=== PATIENT | male | born 1975 | race African-American/Black ===

== ENCOUNTER 2020-10-14 07:18 | Emergency (ER) | payer SELFPAY ==
[~2020-10-14] VITALS: Ht 180.3 cm; Wt 79.6 kg
--- NOTE | 2020-10-14 07:59 | PHYS DOC ---
Past Medical History Past Medical History: No Pertinent History Past Surgical History: No Surgical History Smoking Status: Current Every Day Smoker Additional Information: 02/28 ppd Alcohol Use: Occasionally General Adult EDM: Chief Complaint: MUSCLE SPASM/CRAMP HPI: HPI: Patient is a 45 year old male who present to ER for evaluation of pain in his right thigh area off and on for 1 month. Patient denies any injury. Patient denies any pain or swelling. Patient denies any numbness or weakness. Patient denies any testicular pain, denies any groin pain. Patient said sometime he walks he stop have some pain patient denies any bowel bladder incontinence. Patient denies any low back injury. Patient said sometimes the pain is spreading to the left thigh area mostly on the right side. Review of Systems: Review of Systems: Constitutional: Denies fever or chills. [] Eyes: Denies change in visual acuity. [] HENT: Denies nasal congestion or sore throat. [] Respiratory: Denies cough or shortness of breath. [] Cardiovascular: Denies chest pain or edema. [] GI: Denies abdominal pain, nausea, vomiting, bloody stools or diarrhea. [] : Denies dysuria. [] Musculoskeletal: Denies back pain or joint pain. Positive for right side thigh pain Integument: Denies rash. [] Neurologic: Denies headache, focal weakness or sensory changes. [] Endocrine: Denies polyuria or polydipsia. [] Lymphatic: Denies swollen glands. [] Psychiatric: Denies depression or anxiety. [] Heart Score: C/O Chest Pain: N/A Risk Factors: Risk Factors: DM, Current or recent (<one month) smoker, HTN, HLP, family history of CAD, obesity. Risk Scores: Score 0 - 3: 2.5% MACE over next 6 weeks - Discharge Home Score 4 - 6: 20.3% MACE over next 6 weeks - Admit for Clinical Observation Score 7 - 10: 72.7% MACE over next 6 weeks - Early Invasive Strategies Allergies: Allergies: Allergies Coded Allergies Type Severity Reaction Last Updated Verified No Known Drug Allergies 10/14/20 No Physical Exam: PE: Constitutional: Well developed, well nourished, no acute distress, non-toxic appearance. [] HENT: Normocephalic, atraumatic, bilateral external ears normal, oropharynx moist, no oral exudates, nose normal. [] Eyes: PERRLA, EOMI, conjunctiva normal, no discharge. [] Neck: Normal range of motion, no tenderness, supple, no stridor. [] Cardiovascular:Heart rate regular rhythm, no murmur [] Lungs & Thorax: Bilateral breath sounds clear to auscultation [] Abdomen: Bowel sounds normal, soft, no tenderness, no masses, no pulsatile masses. [] Skin: Warm, dry, no erythema, no rash. [] Back: No tenderness, no CVA tenderness. [] Extremities: No tenderness, no cyanosis, no clubbing, ROM intact, no edema. There is no swelling or redness in the right thigh area, no tenderness to palpation. There is no inguinal hernia noted. Neurologic: Alert and oriented X 3, normal motor function, normal sensory function, no focal deficits noted. [] Psychologic: Affect normal, judgement normal, mood normal. [] Current Patient Data: Vital Signs: Vital Signs Date Time Temp Pulse Resp B/P (MAP) Pulse Ox O2 Delivery O2 Flow Rate FiO2 10/14/20 07:33 98.4 80 18 119/68 96 Room Air 98.4 EKG: EKG: [] Radiology/Procedures: Radiology/Procedures: [][facility] [address] [place] [address] IMAGING REPORT Signed PATIENT: KELSEY GUZMAN ACCOUNT: [id number] : 1975 LOCATION: ER AGE: 45 SEX: M EXAM STATUS: REG ER ORD. PHYSICIAN: KIKO RUVALCABA DO REASON: lower back pain radiating to right thigh area off and on for 1 month PROCEDURE: LUMBAR SPINE 2-3V XR LUMBAR SPINE 2-3V History: Lower back pain radiating to right side on and off for one month. Comparison: None. Technique: 5 views of the lumbar spine. Findings: There are 5 non-rib bearing lumbar vertebral segments. There is no evidence of fracture. Alignment is normal. No destructive osseous lesions are seen. No significant facet disease. Moderate disc space narrowing L5-S1. Sacroiliac joints are unremarkable. Soft tissues are unremarkable. IMPRESSION: 1. Moderate disc space narrowing L5-S1. Electronically signed by: Juan Ortiz MD (10/14/2020 8:28 AM) [id number] DICTATED and SIGNED BY: JUAN ORTIZ MD DATE: 10/14/20 [id number] 0 Course & Med Decision Making: Course & Med Decision Making Pertinent Labs and Imaging studies reviewed. (See chart for details) Patient is a 45-year-old male who present to ER due to right-sided thigh pain, x-ray showed moderate narrow disc space at L5-S1 area causing sciatic symptoms. Patient had no bowel or bladder incontinence. Patient will be discharged home, he will need to follow-up with family physician for outpatient evaluation with MRI of the lumbar spine. Dragon Disclaimer: [employer] Disclaimer: This electronic medical record was generated, in whole or in part, using a voice recognition dictation system. Departure Departure Impression: Primary Impression: Sciatica of right side Disposition: HOME / SELF CARE / HOMELESS Condition: STABLE Referrals: NO PCP (PCP) Please follow up with [facility] this week. [address], [address] [place] [address] Phone number: [phone] Patient Instructions: Sciatica with Rehab[facility] Additional Instructions: Please follow-up with your doctor for reevaluation with MRI of your low back area next week. Thank you for visiting our Emergency Department. We appreciate you trusting us with your care. If any additional problems come up don't hesitate to return to visit us. Please follow up with your primary care provider so they can plan additional care if needed and know about the problem that you had. If symptoms worsen come back to the Emergency Department. Any concerning symptoms that start such as chest pain, shortness of air, weakness or numbness on one side of the body, running high fevers or any other concerning symptoms return to the ER. Scripts Ibuprofen (IBUPROFEN) 600 Mg Tablet 600 MG PO PRN Q8HRS PRN for PAIN, #30 TAB Prov: KIKO RUVALCABA DO 10/14/20 Cyclobenzaprine Hcl (CYCLOBENZAPRINE HCL) 10 Mg Tablet 1 TAB PO TID PRN for MUSCLE SPASMS, #20 TAB Prov: KIKO RUVALCABA DO 10/14/20 Prednisone (PREDNISONE) 20 Mg Tablet 1 TAB PO DAILY for 12 Days, #12 TAB Prov: KIKO RUVALCABA DO 10/14/20 KIKO RUVALCABA DO Oct 14, 2020 07:59
--- NOTE | 2020-10-14 08:31 | RAD ---
XR LUMBAR SPINE 2-3V History: Lower back pain radiating to right side on and off for one month. Comparison: None. Technique: 5 views of the lumbar spine. Findings: There are 5 non-rib bearing lumbar vertebral segments. There is no evidence of fracture. Alignment is normal. No destructive osseous lesions are seen. No significant facet disease. Moderate disc space narrowing L5-S1. Sacroiliac joints are unremarkable. Soft tissues are unremarkable. IMPRESSION: 1. Moderate disc space narrowing L5-S1. Electronically signed by: Juan Ortiz MD (10/14/2020 8:28 AM) [id number]
[2020-10-14] MEDS ORDERED: CYCL10TA2 PO (09:13)
[2020-10-14] MEDS ORDERED: IBUP-1007 PO (09:13)
[2020-10-14] MEDS ORDERED: PRED20TA PO (09:13)
[2020-10-14 09:22] VITALS: BP 125/71
== END 2020-10-14 09:22 | disposition home or self-care (01) ==
LOC: ER 07:18
DX: M54.31 Sciatica, right side (principal); F17.200 Nicotine dependence, unspecified, uncomplicated
CPT/HCPCS: 72100; 99283

== ENCOUNTER 2020-11-11 06:51 | Emergency (ER) | payer SELFPAY ==
[~2020-11-11] VITALS: Ht 180.3 cm; Wt 76.7 kg
[~2020-11-11 06:51] MED LIST: CYCL10TA2 PO; IBUP-1007 PO; PRED20TA PO
[2020-11-11 07:06] VITALS: BP 142/89
[2020-11-11] MEDS ORDERED: PRED20TA PO (07:30)
[2020-11-11] MEDS ORDERED: TRAM50TA PO (07:30)
--- NOTE | 2020-11-11 07:31 | PHYS DOC ---
Past Medical History Past Medical History: No Pertinent History Past Surgical History: No Surgical History Smoking Status: Current Every Day Smoker Additional Information: 0.5 PPD Alcohol Use: Occasionally General Adult EDM: Chief Complaint: LOWER EXT PAIN/back pain HPI: HPI: Patient is a 45 year old male who present to ER for evaluation of low back pain that radiates to his lower extremity off and on for more than 3 months. Patient denies any injury. Patient was seen here on October 14 for the same problem, x- rays of his lumbar spine the time show Moderate disc space narrowing L5-S1. Patient was diagnosed with sciatica, he was discharged home with NSAID and prednisone. He was instructed to follow-up with his family physician for outpatient evaluation with MRI of his lumbar spine. Patient did not see any doctor after the ER visit on that day. Patient continued to have pain so he came here for evaluation. Patient denies any feve r, no cough, no abdominal pain, no nausea vomiting. Patient denies any trouble breathing. Patient denies any bowel or bladder incontinence Review of Systems: Review of Systems: Constitutional: Denies fever or chills. [] Eyes: Denies change in visual acuity. [] HENT: Denies nasal congestion or sore throat. [] Respiratory: Denies cough or shortness of breath. [] Cardiovascular: Denies chest pain or edema. [] GI: Denies abdominal pain, nausea, vomiting, bloody stools or diarrhea. [] : Denies dysuria. [] Musculoskeletal: Positive for back pain that radiates to his lower extremity. No lower extremity swelling Integument: Denies rash. [] Neurologic: Denies headache, focal weakness or sensory changes. [] Endocrine: Denies polyuria or polydipsia. [] Lymphatic: Denies swollen glands. [] Psychiatric: Denies depression or anxiety. [] Heart Score: C/O Chest Pain: N/A Risk Factors: Risk Factors: DM, Current or recent (<one month) smoker, HTN, HLP, family history of CAD, obesity. Risk Scores: Score 0 - 3: 2.5% MACE over next 6 weeks - Discharge Home Score 4 - 6: 20.3% MACE over next 6 weeks - Admit for Clinical Observation Score 7 - 10: 72.7% MACE over next 6 weeks - Early Invasive Strategies Allergies: Allergies: Allergies Coded Allergies Type Severity Reaction Last Updated Verified No Known Drug Allergies 10/14/20 No Physical Exam: PE: Constitutional: Well developed, well nourished, no acute distress, non-toxic appearance. [] HENT: Normocephalic, atraumatic, bilateral external ears normal, oropharynx moist, no oral exudates, nose normal. [] Eyes: PERRLA, EOMI, conjunctiva normal, no discharge. [] Neck: Normal range of motion, no tenderness, supple, no stridor. [] Cardiovascular:Heart rate regular rhythm, no murmur [] Lungs & Thorax: Bilateral breath sounds clear to auscultation [] Abdomen: Bowel sounds normal, soft, no tenderness, no masses, no pulsatile mas ses. [] Skin: Warm, dry, no erythema, no rash. [] Back: No tenderness, no CVA tenderness. [] Extremities: No tenderness, no cyanosis, no clubbing, ROM intact, no edema. No swelling, no redness, no evidence of DVT clinically Neurologic: Alert and oriented X 3, normal motor function, normal sensory function, no focal deficits noted. [] Psychologic: Affect normal, judgement normal, mood normal. [] Current Patient Data: Vital Signs: Vital Signs Date Time Temp Pulse Resp B/P (MAP) Pulse Ox O2 Delivery O2 Flow Rate FiO2 11/11/20 07:06 96.6 86 17 142/89 (106) 97 Room Air 96.6 EKG: EKG: [] Course & Med Decision Making: Course & Med Decision Making Pertinent Labs and Imaging studies reviewed. (See chart for details) Patient is a 45-year-old male who has sciatica due to some disc problem at L5 and S1 area, patient will need to follow-up with his family physician for outpatient evaluation with MRI of his lumbar spine. There is no further diagnostic work-up needed urgently in the ER at this time. Dragon Disclaimer: [employer] Disclaimer: This electronic medical record was generated, in whole or in part, using a voice recognition dictation system. Departure Departure Impression: Primary Impression: Sciatica associated with disorder of lumbar spine Disposition: HOME / SELF CARE / HOMELESS Condition: STABLE Referrals: NO PCP (PCP) Patient Instructions: Sciatica with Rehab[facility]Sports[facility] Additional Instructions: Thank you for visiting our Emergency Department. We appreciate you trusting us with your care. If any additional problems come up don't hesitate to return to visit us. Please follow up with your primary care provider so they can plan additional care if needed and know about the problem that you had. If symptoms worsen come back to the Emergency Department. Any concerning symptoms that start such as chest pain, shortness of air, weakness or numbness on one side of the body, running high fevers or any other concerning symptoms return to the ER. [facility] [address] [place] [address] [facility] [address] [place] [address] [facility] CARE [address] [facility] [place] [address] [facility] [address] [place] [address] [facility] [address] [place] [address] [facility] [address] [place] [address] [facility] [address] [place] [address] [facility] [address] [place] [address] [facility] [address] [place] [address] [facility] [address] [place] [address] Scripts Tramadol Hcl (TRAMADOL HCL) 50 Mg Tablet 50 MG PO Q6HRS PRN for PAIN, #15 TAB Prov: KIKO RUVALCABA DO 11/11/20 Prednisone (PREDNISONE) 20 Mg Tablet 1 TAB PO DAILY for 7 Days, #7 TAB Prov: KIKO RUVALCABA DO 11/11/20 KIKO RUVALCABA DO Nov 11, 2020 07:31
== END 2020-11-11 07:56 | disposition home or self-care (01) ==
LOC: ER 06:51
DX: M54.40 Lumbago with sciatica, unspecified side (principal); F17.200 Nicotine dependence, unspecified, uncomplicated
CPT/HCPCS: 99283